=== PATIENT | male | born 1990 | race Caucasian/White ===

== ENCOUNTER 2019-03-26 15:06 | Emergency (ER) | payer BC ==
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
--- NOTE | 2019-03-26 17:56 | CR ---
Left knee: AP, lateral and sunrise patellar views left knee were obtained. Comparison: No previous knee study. Medial and lateral joint compartments are maintained in height. No joint effusion is seen. Patellofemoral joint appears within normal limits. Impression: 1. No abnormality is identified on 3 view left knee exam. Diagnostic code #1 This report was dictated in [place] Standard Time
== END 2019-03-26 18:25 | disposition home or self-care (01) ==
LOC: MW.ED 15:06
DX: S89.92XA Unspecified injury of left lower leg, initial encounter (principal); V89.2XXA Person injured in unspecified motor-vehicle accident, traffic, initial encounter
CPT/HCPCS: 73562-26-LT; 73562-LT; 99283; 99284-25